=== PATIENT | male | born 2000 | race Hispanic/Latino ===

== ENCOUNTER 2020-06-02 10:01 | Emergency (ER) | payer OTHER ==
[~2020-06-02] VITALS: Ht 162.6 cm; Wt 63.0 kg
[2020-06-02 10:01] VITALS: BP 138/63
[2020-06-02] MEDS ORDERED: methocarbamoL 750 MG TAB PO ONE (11:20)
[2020-06-02] MEDS ORDERED: KETOROLAC 60MG 2ML VIAL IM ONE (11:20)
[2020-06-02] MEDS ORDERED: ROBA750T4 PO (12:03)
[2020-06-02] MEDS ORDERED: KETO10TAB PO (12:03)
== END 2020-06-02 12:07 | disposition home or self-care (01) ==
LOC: M ED 10:01
DX: S39.012A Strain of muscle, fascia and tendon of lower back, initial encounter (principal); X58.XXXA Exposure to other specified factors, initial encounter; Y92.9 Unspecified place or not applicable; Y93.9 Activity, unspecified; Y99.9 Unspecified external cause status; F17.290 Nicotine dependence, other tobacco product, uncomplicated
CPT/HCPCS: 96372; 99282; J1885